=== PATIENT | male | born 1995 | race Hispanic/Latino ===

== ENCOUNTER → 2024-01-09 | Outpatient (CLI) | payer OTHER ==
--- NOTE | 2024-01-09 15:19 | HMCIMG ---
CHEST 2VWS REASON: Tobacco use COMPARISON: None FINDINGS: Two views of the chest were obtained. Lungs are clear. Heart size is normal. There is no pulmonary vascular congestion. Mediastinum and bony thorax appear unremarkable. IMPRESSION: Normal two view chest x-ray.
== END | disposition home or self-care (01) ==
LOC: RAH 13:37
PROVIDERS: ATTEND Family Medicine
DX: Z72.0 Tobacco use (principal)
CPT/HCPCS: 71046